=== PATIENT | male | born 1995 | race African-American/Black ===

== ENCOUNTER 2021-03-14 01:02 | Emergency (ER) | payer OTHER ==
[~2021-03-14] VITALS: Ht 177.8 cm; Wt 69.1 kg
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
[2021-03-14 01:48] LABS: BASO % 1 % (0-3); EOS # 0.2 x10^3/uL (0.0-0.7); EOS % 2 % (0-3); HEMATOCRIT 40.6 % (39.0-53.0); HEMOGLOBIN 13.5 g/dL (13.0-17.5); LYMPH # 1.9 x10^3/uL (1.0-4.8); LYMPH % 22 % (24-48); MEAN CORPUSCULAR HEMOGLOBIN 29 pg (25-35); MEAN CORPUSCULAR HGB CONC 33 g/dL (31-37); MEAN CORPUSCULAR VOLUME 86 fL (79-100); MONO # 0.9 x10^3/uL (0.0-1.1); MONO % 11 % (0-9); NEUT # 5.3 x10^3/uL (1.8-7.7); NEUT % 64 % (31-73); PLATELET COUNT 180 x10^3/uL (140-400); RED BLOOD COUNT 4.72 x10^6/uL (4.30-5.70); RED CELL DISTRIBUTION WIDTH 13.6 % (11.5-14.5); WHITE BLOOD COUNT 8.3 x10^3/uL (4.0-11.0)
[2021-03-14] MEDS: KETOROLAC 30 MG/ML VIAL. IVP ONE (01:53)
[2021-03-14 01:56] LABS: CALCIUM 9.3 mg/dL (8.5-10.1); CREATININE 0.9 mg/dL (0.7-1.3); GFR 123.4; POTASSIUM 4.1 mmol/L (3.5-5.1)
[2021-03-14 02:02] LABS: ALBUMIN 4.2 g/dL (3.4-5.0); ALBUMIN/GLOBULIN RATIO 1.4 (1.0-1.7); TOTAL BILIRUBIN 0.3 mg/dL (0.2-1.0); TOTAL PROTEIN 7.2 g/dL (6.4-8.2)
--- NOTE | 2021-03-14 02:08 | RAD ---
Study: XR CHEST 1V Indication: Shortness of breath. Comparison: None. Findings: The cardiomediastinal silhouette and fiona are within normal limits. No localized airspace opacity, pl eural effusion or pneumothorax. Impression: No acute radiographic abnormality of the chest. Electronically signed by: HELEN SMALL MD (03/14/2021 2:05 AM) [facility]
[2021-03-14] MEDS: methylPREDNISolone SOD SUCC PF 125 MG/2 ML VIAL. IV ONE (03:13)
[2021-03-14] MEDS ORDERED: PRED20TA PO (03:14)
[2021-03-14] MEDS: MORPHINE SULFATE 4 MG/ML VIAL. IV ONE (03:14)
[2021-03-14 03:15] VITALS: BP 128/80
[2021-03-14] MEDS ORDERED: CYCL10TA2 PO (03:15)
== END 2021-03-14 03:38 | disposition home or self-care (01) ==
LOC: ER 01:02
DX: R07.81 Pleurodynia (principal); M25.511 Pain in right shoulder; M54.5 Low back pain; R06.02 Shortness of breath
CPT/HCPCS: 36415; 71045; 80053; 85025; 85379; 96374; 96375; 99285; J1885; J2270; J2930

== ENCOUNTER 2022-01-14 14:49 | Emergency (ER) | payer OTHER ==
[~2022-01-14] VITALS: Ht 182.9 cm; Wt 81.2 kg
[~2022-01-14 14:49] MED LIST: CYCL10TA19 PO; PRED20TA PO
[2022-01-14] MEDS ORDERED: ORPHENADRINE CITRATE 60 MG/2 ML VIAL. IM ONE (16:00)
[2022-01-14] MEDS ORDERED: KETOROLAC 60 MG/2 ML VIAL. IM ONE (16:00)
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
[2022-01-14] MEDS ORDERED: ORPH100T PO (17:14)
[2022-01-14 18:46] VITALS: BP 120/67
== END 2022-01-14 18:46 | disposition home or self-care (01) ==
LOC: ER 14:49
DX: S06.0X1A Concussion with loss of consciousness of 30 minutes or less, initial encounter (principal); V49.49XA Driver injured in collision with other motor vehicles in traffic accident, initial encounter; Y92.488 Other paved roadways as the place of occurrence of the external cause; Y93.89 Activity, other specified; Y99.8 Other external cause status
CPT/HCPCS: 70450; 72125; 96372; 99284; J1885; J2360